=== PATIENT | female | born 1935 | race Caucasian/White ===

== ENCOUNTER 2024-06-26 12:13 | Inpatient (IN) | payer MEDICARE ==
--- NOTE | 2024-06-26 12:52 | ED ---
General Adult HPI - General Chief complaint: Arrhythmia/Palpitations Stated complaint: elevted heart rate Time Seen by Provider: 06/26/24 12:14 Source: patient, family, EMS, RN notes reviewed Mode of arrival: EMS Limitations: altered mental status - History of Present Illness Initial comments: Patient is an 88-year-old female presenting to the emergency department with concerns for increased heart rate. Daughter has noticed this since last night. Heart rate has been as high as 140s. Patient has been more drowsy today. Patient does have history of pulmonary fibrosis and recently was placed on oxygen just 2 weeks ago. Atrial flutter is also new and patient was started on anticoagulation 2 weeks ago. Patient is very drowsy and offers little history. Majority of history is from daughter - Related Data Home Medications Medication Instructions Recorded Confirmed predniSONE 5 mg PO MOWEFR 04/07/18 06/26/24 Apixaban [Eliquis] 5 mg PO BID-W/MEALS 06/26/24 06/26/24 Calcium Carbonate [Calcium] 600 mg PO DAILY 06/26/24 06/26/24 Multivit-Min/Iron/Folic/Lutein 1 tab PO DAILY 06/26/24 06/26/24 [Centrum Silver Women Tablet] Omeprazole Magnesium [PriLOSEC OTC] 20 mg PO DAILY 06/26/24 06/26/24 Triamterene/Hydrochlorothiazid 1 tab PO DAILY 06/26/24 06/26/24 [Triamterene-Hctz 37.5-25 mg Tb] dilTIAZem HCL 30 mg PO TID 06/26/24 06/26/24 Allergies Allergy/AdvReac Type Severity Reaction Status Date / Time No Known Allergies Allergy Verified 06/26/24 12:34 Review of Systems ROS Statement: Those systems with pertinent positive or pertinent negative responses have been documented in the HPI. ROS Other: All systems not noted in ROS Statement are negative. Constitutional: Denies: fever Eyes: Denies: eye pain Respiratory: Denies: dyspnea Cardiovascular: Denies: chest pain Endocrine: Reports: fatigue Past Medical History Past Medical History: Atrial Flutter, Hyperlipidemia Additional Past Medical History / Comment(s): pulmonary fibrosis History of Any Multi-Drug Resistant Organisms: None Reported Past Surgical History: Heart Catheterization Additional Past Surgical History / Comment(s): approx 10 years ago. Past Anesthesia/Blood Transfusion Reactions: No Reported Reaction Past Psychological History: No Psychological Hx Reported Smoking Status: Never smoker Past Alcohol Use History: None Reported Past Drug Use History: None Reported - Past Family History Father Family Medical History: Myocardial Infarction ([place]) General Exam Limitations: altered mental status General appearance: other (Patient very drowsy but arousable to voice and then drifts off to sleep.) Head exam: Present: atraumatic Eye exam: Present: normal appearance, PERRL ENT exam: Present: normal oropharynx Neck exam: Present: normal inspection. Absent: tenderness, meningismus Respiratory exam: Present: normal lung sounds bilaterally Cardiovascular Exam: Present: tachycardia, irregular rhythm GI/Abdominal exam: Present: soft. Absent: tenderness Extremities exam: Present: normal inspection. Absent: pedal edema, calf tenderness Neurological exam: Present: alert, oriented X3, CN II-XII intact Expanded Neurological exam: Present: protecting the airway, other (Limited exam. Drowsy. Patient follows commands when repetitively told to do so) Patient oriented to: Present: person, place, time Motor strength exam: RUE: 5, LUE: 5, RLE: 4, LLE: 4 Eye Response: (3) open to voice Motor Response: (6) obeys commands Verbal Response: (5) oriented Psychiatric exam: Present: flat affect Skin exam: Present: normal color Course Vital Signs 06/26/24 06/26/24 06/26/24 12:16 12:23 12:31 Temperature 97.0 F L Pulse Rate 62 101 H Pulse Rate [ 82 Grant Specialist ] Respiratory 22 20 Rate Blood Pressure 87/66 115/90 O2 Sat by Pulse 92 L 93 L Oximetry Fraction of Inspired Oxygen (FIO2) 06/26/24 06/26/24 06/26/24 12:55 13:39 13:53 Temperature Pulse Rate 112 H 141 H Pulse Rate [ Grant Specialist ] Respiratory 35 H 24 Rate Blood Pressure 98/72 98/82 O2 Sat by Pulse 89 L 97 Oximetry Fraction of 50 Inspired Oxygen (FIO2) EKG Findings - EKG Results: EKG: interpreted by ERMD (Nonspecific T waves), normal axis, normal QRS EKG shows: tachycardia (Atrial flutter) Procedures - ABG Interpretation Ph: 7.26 PCO2: 85 PO2: 40 Interpretation: respiratory acidosis Medical Decision Making - Medical Decision Making Was pt. sent in by a medical professional or institution (Dr., PA, BLACKJACK SUPERVISOR, urgent care, hospital, or care home...) When possible be specific @ -No Did you speak to anyone other than the patient for history (EMS, parent, family, police, friend...)? What history was obtained from this source @ -Daughter is present and provides majority of history as patient is drowsy Did you review nursing and triage notes (agree or disagree)? Why? @ -I reviewed and agree with nursing and triage notes Were old charts reviewed (outside hosp., previous admission, EMS record, old EKG, old radiological studies, urgent care reports/EKG's, care home records)? Report findings @ -No old charts were reviewed Differential Diagnosis (chest pain, altered mental status, abdominal pain women, abdominal pain men, vaginal bleeding, weakness, fever, dyspnea, syncope, headache, dizziness, GI bleed, back pain, seizure, CVA, palpatations, mental health, musculoskeletal)? @ -Differential Dyspnea: Coronary syndrome, arrhythmia, tamponade, asthma, COPD, pulmonary embolism, pneumonia, pneumothorax, pulmonary effusion, anaphylaxis, diabetic ketoacidosis, flailed chest, pulmonary contusion, diaphragmatic rupture, anemia, neuromuscular, this is not meant to be an all-inclusive list. EKG interpreted by me (3pts min.). @ -As above X-rays interpreted by me (1pt min.). @ -Chest x-ray shows increased interstitial changes CT interpreted by me (1pt min.). @ -None done U/S interpreted by me (1pt. min.). @ -None done What testing was considered but not performed or refused? (CT, X-rays, U/S, labs)? Why? @ -None What meds were considered but not given or refused? Why? @ -Consider Cardizem drip however heart rate has improved Did you discuss the management of the patient with other professionals (professionals i.e. TERESA Ruiz, BLACKJACK SUPERVISOR, lab, RT, psych nurse, social secretary, white sugar pan tank operator, teacher, sheriff's officer, child welfare caseworker)? Give summary @ -Case was discussed with Dr. Vergara who will admit covering Dr. Fernandez. Case also discussed with Dr. Ortega who will admit to ICU and consult. Was smoking cessation discussed for >3mins.? @ -No Was critical care preformed (if so, how long)? @ -34 minutes critical care time Were there social determinants of health that impacted care today? How? (Homelessness, low income, unemployed, alcoholism, drug addiction, transportation, low edu. Level, literacy, decrease access to med. care, long term, rehab)? @ -No Was there de-escalation of care discussed even if they declined (Discuss DNR or withdrawal of care, Hospice)? DNR status @ -Discussion had with family regarding patient CODE STATUS and they are unclear at this time. Therefore patient will remain full code. They will discuss this with further family member What co-morbidities impacted this encounter? (DM, HTN, Smoking, COPD, CAD, Cancer, CVA, ARF, Chemo, Hep., AIDS, mental health diagnosis, sleep apnea, morbid obesity)? @ -History of pulmonary fibrosis Was patient admitted / discharged? Hospital course, mention meds given and route, prescriptions, significant lab abnormalities, going to OR and other pertinent info. @ -Patient presents with tachycardia and increased drowsiness. Patient is hypoxic requiring BiPAP. Patient will be admitted to intensive care unit with pulmonary/critical care consult. Patient and family updated. Admission orders written Undiagnosed new problem with uncertain prognosis? @ -No Drug Therapy requiring intensive monitoring for toxicity (Heparin, Nitro, Insulin, Cardizem)? @ -No Were any procedures done? @ -No Diagnosis/symptom? @ -Respiratory failure, atrial flutter Acute, or Chronic, or Acute on Chronic? @ -Acute, acute on chronic Uncomplicated (without systemic symptoms) or Complicated (systemic symptoms)? @ -Complicated with tachycardia that at this point has resolved Side effects of treatment? @ -No Exacerbation, Progression, or Severe Exacerbation? @ -Severe exacerbation Poses a threat to life or bodily function? How? (Chest pain, [place], [place], pneumonia, PE, COPD, DKA, ARF, appy, cholecystitis, CVA, Diverticulitis, Homicidal, Suicidal, threat to staff... and all critical care pts) @ -Threat to pulmonary and cardiac function - Lab Data Result diagrams: 06/26/24 12:57 06/26/24 12:57 Lab Results 06/26/24 06/26/24 06/26/24 Range/Units 12:57 12:57 12:57 WBC 10.1 (3.8-10.6) k/uL RBC 4.47 (3.80-5.40) m/uL Hgb 14.2 (11.4-16.0) gm/dL Hct 46.3 H (34.0-46.0) % MCV 103.5 H (80.0-100.0) fL MCH 31.8 (25.0-35.0) pg MCHC 30.8 L (31.0-37.0) g/dL RDW 15.0 (11.5-15.5) % Plt Count 255 (150-450) k/uL MPV 10.3 Neutrophils % 91 % Lymphocytes % 4 % Monocytes % 4 % Eosinophils % 1 % Basophils % 0 % Neutrophils # 9.2 H (1.3-7.7) k/uL Lymphocytes # 0.4 L (1.0-4.8) k/uL Monocytes # 0.4 (0-1.0) k/uL Eosinophils # 0.1 (0-0.7) k/uL Basophils # 0.0 (0-0.2) k/uL Hypochromasia Marked Macrocytosis Moderate PT 12.6 H (10.0-12.5) sec INR 1.2 H (<1.2) APTT 22.2 (22.0-30.0) sec Sample Site ABG pH (7.35-7.45) ABG pCO2 (35-45) mmHg ABG pO2 (83-108) mmHg ABG HCO3 (21-25) mmol/L ABG Total CO2 (19-24) mmol/L ABG O2 Saturation (94-97) % ABG Base Excess mmol/L Jordy Test Hemoglobin (11.4-16.0) gm/dL FiO2 % Sodium 138 (137-145) mmol/L Potassium 5.0 (3.5-5.1) mmol/L Chloride 95 L (98-107) mmol/L Carbon Dioxide 38 H (22-30) mmol/L Anion Gap 5 mmol/L BUN 69 H (7-17) mg/dL Creatinine 1.30 H (0.52-1.04) mg/dL Est GFR (CKD-EPI)AfAm 43 (>60 ml/min/1.73 sqM) Est GFR (CKD-EPI)NonAf 37 (>60 ml/min/1.73 sqM) Glucose 144 H (74-99) mg/dL Calcium 10.1 (8.4-10.2) mg/dL Magnesium 2.1 (1.6-2.3) mg/dL Total Bilirubin 0.7 (0.2-1.3) mg/dL AST 24 (14-36) U/L ALT 22 (4-34) U/L Alkaline Phosphatase 130 H (38-126) U/L Troponin I (0.000-0.034) ng/mL Total Protein 6.7 (6.3-8.2) g/dL Albumin 3.5 (3.5-5.0) g/dL TSH 1.410 (0.465-4.680) mIU/L Free T4 1.00 (0.78-2.19) ng/dL 06/26/24 06/26/24 Range/Units 12:57 13:06 WBC (3.8-10.6) k/uL RBC (3.80-5.40) m/uL Hgb (11.4-16.0) gm/dL Hct (34.0-46.0) % MCV (80.0-100.0) fL MCH (25.0-35.0) pg MCHC (31.0-37.0) g/dL RDW (11.5-15.5) % Plt Count (150-450) k/uL MPV Neutrophils % % Lymphocytes % % Monocytes % % Eosinophils % % Basophils % % Neutrophils # (1.3-7.7) k/uL Lymphocytes # (1.0-4.8) k/uL Monocytes # (0-1.0) k/uL Eosinophils # (0-0.7) k/uL Basophils # (0-0.2) k/uL Hypochromasia Macrocytosis PT (10.0-12.5) sec INR (<1.2) APTT (22.0-30.0) sec Sample Site rrad ABG pH 7.24 L (7.35-7.45) ABG pCO2 86 H* (35-45) mmHg ABG pO2 41 L* (83-108) mmHg ABG HCO3 36 H (21-25) mmol/L ABG Total CO2 39 H (19-24) mmol/L ABG O2 Saturation 75.8 L (94-97) % ABG Base Excess 5.6 mmol/L Jordy Test Yes Hemoglobin 13.9 (11.4-16.0) gm/dL FiO2 40 % Sodium (137-145) mmol/L Potassium (3.5-5.1) mmol/L Chloride (98-107) mmol/L Carbon Dioxide (22-30) mmol/L Anion Gap mmol/L BUN (7-17) mg/dL Creatinine (0.52-1.04) mg/dL Est GFR (CKD-EPI)AfAm (>60 ml/min/1.73 sqM) Est GFR (CKD-EPI)NonAf (>60 ml/min/1.73 sqM) Glucose (74-99) mg/dL Calcium (8.4-10.2) mg/dL Magnesium (1.6-2.3) mg/dL Total Bilirubin (0.2-1.3) mg/dL AST (14-36) U/L ALT (4-34) U/L Alkaline Phosphatase (38-126) U/L Troponin I 0.020 (0.000-0.034) ng/mL Total Protein (6.3-8.2) g/dL Albumin (3.5-5.0) g/dL TSH (0.465-4.680) mIU/L Free T4 (0.78-2.19) ng/dL Disposition Clinical Impression: Atrial flutter, Tachycardia, Respiratory failure Disposition: ADMITTED IP TO THIS HOSP Condition: Critical Is patient prescribed a controlled substance at d/c from ED?: No Referrals: Ollie Fernandez MD [Primary Care Provider] - 1-2 days Time of Disposition: 13:56
[2024-06-26 13:10] LABS: Basophils % (A) 0 %; Eosinophils # (A) 0.1 k/uL (0-0.7); Eosinophils % (A) 1 %; HCT 46.3 % (34.0-46.0); HGB 14.2 gm/dL (11.4-16.0); Hypochromasia Marked; Lymphocytes # (A) 0.4 k/uL (1.0-4.8); Lymphocytes % (A) 4 %; MCH 31.8 pg (25.0-35.0); MCHC 30.8 g/dL (31.0-37.0); MCV 103.5 fL (80.0-100.0); Macrocytosis Moderate; Mean Platelet Volume 10.3; Monocytes # (A) 0.4 k/uL (0-1.0); Monocytes % (A) 4 %; Neutrophils # (A) 9.2 k/uL (1.3-7.7); Neutrophils % (A) 91 %; Platelet Count 255 k/uL (150-450); RBC 4.47 m/uL (3.80-5.40); WBC 10.1 k/uL (3.8-10.6)
[2024-06-26 13:10] LABS: ABG Base Excess 5.6 mmol/L; ABG HCO3 36 mmol/L (21-25); ABG Oxygen Saturation 75.8 % (94-97); ABG PH 7.24 (7.35-7.45); ABG TCO2 39 mmol/L (19-24); Allen Test Performed? Yes
[2024-06-26 13:15] LABS: ALT 22 U/L (4-34); AST 24 U/L (14-36); African American GFR (CKD) 43 (>60 ml/min/1.73 sqM); Albumin 3.5 g/dL (3.5-5.0); Alkaline Phosphatase 130 U/L (38-126); Anion Gap 5 mmol/L; Blood Urea Nitrogen 69 mg/dL (7-17); Calcium 10.1 mg/dL (8.4-10.2); Carbon Dioxide 38 mmol/L (22-30); Chloride 95 mmol/L (98-107); Glucose 144 mg/dL (74-99); Magnesium 2.1 mg/dL (1.6-2.3); Non-African American GFR(CKD) 37 (>60 ml/min/1.73 sqM); Sodium 138 mmol/L (137-145); Total Bilirubin 0.7 mg/dL (0.2-1.3); Total Protein 6.7 g/dL (6.3-8.2)
[2024-06-26 13:16] LABS: ABG PCO2 86 mmHg (35-45); ABG PO2 41 mmHg (83-108)
[2024-06-26 13:19] LABS: INR 1.2 (<1.2); Partial Thromboplastin Time 22.2 sec (22.0-30.0); Prothrombin Time 12.6 sec (10.0-12.5)
--- NOTE | 2024-06-26 13:33 | XR ---
EXAMINATION TYPE: XR chest 1V portable DATE OF EXAM: 06/26/2024 1:23 PM COMPARISON: Chest radiographs from 04/08/2018, CT abdomen and pelvis 04/06/2018 TECHNIQUE: XR chest 1V portable Portable AP radiograph of the chest. CLINICAL INDICATION:Female, 88 years old with history of dysrhythmia; FINDINGS: Lungs/Pleura: Diffuse multifocal airspace opacities. Blunting of both costophrenic angles. No evidenc e of pneumothorax. Hyperinflation. Biapical pleural thickening. Pulmonary vascularity: Unremarkable. Heart/mediastinum: Cardiomediastinal silhouette is enlarged and stable. Musculoskeletal: No acute osseous pathology. IMPRESSION: 1. Multifocal airspace opacities concerning for pneumonia. 2. Small bilateral pleural effusions. 3. COPD changes. 4. Large hiatal hernia is better appreciated on prior CT. [facility], , 06/26/2024 1:31 PM
[2024-06-26] MEDS ORDERED: Potassium Replacement Protocol 1 EACH MISC MISCELLANE PRN (14:05)
[2024-06-26] MEDS ORDERED: ACETAMINOPHEN TAB 325 MG TAB PO PRN (14:05)
[2024-06-26] MEDS ORDERED: NALOXONE 0.4 MG/ML 1 ML VIAL IV PRN (14:05)
[2024-06-26] MEDS ORDERED: Magnesium Replacement Protocol 1 EACH MISC MISCELLANE PRN (14:05)
[2024-06-26] MEDS ORDERED: IPRATROPIUM-ALBUTEROL 3 ML NEB INHALATION PRN (14:05)
[2024-06-26] MEDS ORDERED: ACETAMINOPHEN SUPPOSITORY 650 MG SUPP RECTAL PRN (14:05)
[2024-06-26] MEDS: LACTATED RINGERS 1,000 ML IV STA (14:05)
[2024-06-26] MEDS ORDERED: Phosphorus Replacement Protoco 1 EACH MISC MISCELLANE PRN (14:05)
[2024-06-26 14:39] LABS: Influenza A Not Detected (Not Detectd); Influenza B Not Detected (Not Detectd); RSV Not Detected (Not Detectd)
[2024-06-26] MEDS: methylPREDNISolone SOD SUCCI 125 MG/2 ML VIAL IV STA (14:53)
[2024-06-26] MEDS ORDERED: HEPARIN SODIUM 1,000 UN/ML (10ML VL) IV PRN (15:35)
[2024-06-26 15:40] LABS: ABG Base Excess 5.3 mmol/L; ABG HCO3 35 mmol/L (21-25); ABG Oxygen Saturation 99.5 % (94-97); ABG PH 7.28 (7.35-7.45); ABG PO2 135 mmHg (83-108); ABG TCO2 37 mmol/L (19-24); Allen Test Performed? Yes
[2024-06-26 15:45] LABS: ABG PCO2 74 mmHg (35-45)
--- NOTE | 2024-06-26 16:01 | P.CNPUL ---
History of Present Illness Consult date: 06/26/24 Reason for consult: dyspnea History of present illness: 88-year-old female patient, presented to us from [facility] in acute hypoxic and hypercapnic respiratory failure. Patient is known to have pulmonary fibrosis followed up through our office by Dr. Drake. The patient has severe restrictive lung disease with an FVC of 61% of predicted and a diffusion capacity of 34% of predicted. She also has hypertension hyperlipidemia and pre vious history of GI bleed. Recently, she has been experiencing worsening shortness of breath. She ended up being seen at [facility] where she was given antibiotics and discharged. She was noted to be in atrial flutter. She was seen by Dr. Londono from cardiology. She is already on anticoagulation and the patient was being considered for cardioversion. However, the procedure was not done. The patient became more short of breath over the past 24 hours which ended up coming into the hospital. No fever. No chills. No sputum production. Some increased lower extremity edema. Initial blood gas showed a pH of 7.24 with a pCO2 of 86 and pO2 of 41. The patient was placed on a BiPAP at a pressure of 14 over 5 cm of water with an FiO2 of 40%. Subsequent blood gas showed a pH of 7.28 with a pCO2 of 74 and pO2 of 135. Remains in atrial flutter with a variable block and a heart rate between 110 and 120. Blood pressure is soft. She has an acute kidney injury with a creatinine of 1.3 and a pCO2 of 69. Her level of consciousness quite diminished. White cell count of 10.1. Hem oglobin 14.2. The viral screen is negative. proBNP level is 5430. Family is at the bedside. No previous history of DVT or pulmonary embolism. She was already taking anticoagulation with Eliquis. Review of Systems ROS unobtainable: due to mental status Past Medical History Past Medical History: Atrial Flutter, Hyperlipidemia Additional Past Medical History / Comment(s): pulmonary fibrosis History of Any Multi-Drug Resistant Organisms: None Reported Past Surgical History: Heart Catheterization Additional Past Surgical History / Comment(s): approx 10 years ago. Past Anesthesia/Blood Transfusion Reactions: No Reported Reaction Past Psychological History: No Psychological Hx Reported Smoking Status: Never smoker Past Alcohol Use History: None Reported Past Drug Use History: None Reported - Past Family History Father Family Medical History: Myocardial Infarction ([place]) Medications and Allergies Home Medications Medication Instructions Recorded Confirmed Type predniSONE 5 mg PO MOWEFR 04/07/18 06/26/24 History Apixaban [Eliquis] 5 mg PO BID-W/MEALS 06/26/24 06/26/24 History Calcium Carbonate [Calcium] 600 mg PO DAILY 06/26/24 06/26/24 History Multivit-Min/Iron/Folic/Lutein 1 tab PO DAILY 06/26/24 06/26/24 History [Centrum Silver Women Tablet] Omeprazole Magnesium [PriLOSEC OTC] 20 mg PO DAILY 06/26/24 06/26/24 History Triamterene/Hydrochlorothiazid 1 tab PO DAILY 06/26/24 06/26/24 History [Triamterene-Hctz 37.5-25 mg Tb] dilTIAZem HCL 30 mg PO TID 06/26/24 06/26/24 History Allergies Allergy/AdvReac Type Severity Reaction Status Date / Time No Known Allergies Allergy Verified 06/26/24 12:34 Physical Exam Vitals: Vital Signs Temp Pulse Pulse Resp BP Pulse Ox FiO2 06/26/24 15:32 98 24 94/52 99 06/26/24 15:25 124 H 24 112/83 98 06/26/24 15:23 40 06/26/24 15:06 98 24 92/67 98 06/26/24 14:31 107 H 26 H 90/54 97 06/26/24 14:01 40 06/26/24 14:00 91 24 94/43 96 06/26/24 13:53 50 06/26/24 13:39 141 H 24 98/82 97 06/26/24 13:25 50 06/26/24 12:55 112 H 35 H 98/72 89 L 06/26/24 12:31 101 H 20 115/90 93 L 06/26/24 12:23 82 06/26/24 12:16 97.0 F L 62 22 87/66 92 L Intake and Output 06/26/24 06/26/24 06/26/24 06:59 14:59 22:59 Other: Weight 68.039 kg Diminished level of consciousness, tachypneic with respiratory rate between 25 and 30 on a BiPAP at a pressure of 14 over 5 cm of water with an FiO2 of 40%. Grimaces only to painful stimulation. Not following commands. Head exam is unremarkable. No scleral icterus or corneal arcus noted. Neck is without jugular venous distension, thyromegaly, or carotid bruits. Carotid upstrokes are brisk bilaterally. Lung diminished bilaterally along with) lung base bilaterally. Cardiac exam reveals the PMI to be normally sized and situated. Irregular consistent with atrial flutter with a variable block. First and second heart sounds normal. No murmurs, rubs or gallops. Abdominal exam reveals normal bowel sounds, no masses, no organomegaly and no aortic enlargement. Extremities are nonedematous and both femoral and pedal pulses are normal. Examination of the skin revealed no evidence of significant rashes, suspicious appearing nevi or other concerning lesions. Neurologically, the patient has diminished level of consciousness. Grimaces only to painful stimulation. Very much obtunded. Results - Laboratory Findings CBC and BMP: 06/26/24 12:57 06/26/24 12:57 ABG ABG pH 7.28 (7.35-7.45) L 06/26/24 15:37 ABG pCO2 74 mmHg (35-45) H* 06/26/24 15:37 ABG pO2 135 mmHg (83-108) H 06/26/24 15:37 ABG O2 Saturation 99.5 % (94-97) H 06/26/24 15:37 PT/INR, D-dimer PT 12.6 sec (10.0-12.5) H 06/26/24 12:57 INR 1.2 (<1.2) H 06/26/24 12:57 Abnormal lab findings: Abnormal Labs 06/26/24 06/26/24 06/26/24 12:57 12:57 12:57 Hct 46.3 H MCV 103.5 H MCHC 30.8 L Neutrophils # 9.2 H Lymphocytes # 0.4 L PT 12.6 H INR 1.2 H ABG pH ABG pCO2 ABG pO2 ABG HCO3 ABG Total CO2 ABG O2 Saturation Chloride 95 L Carbon Dioxide 38 H BUN 69 H Creatinine 1.30 H Glucose 144 H Alkaline Phosphatase 130 H 06/26/24 06/26/24 13:06 15:37 Hct MCV MCHC Neutrophils # Lymphocytes # PT INR ABG pH 7.24 L 7.28 L ABG pCO2 86 H* 74 H* ABG pO2 41 L* 135 H ABG HCO3 36 H 35 H ABG Total CO2 39 H 37 H ABG O2 Saturation 75.8 L 99.5 H Chloride Carbon Dioxide BUN Creatinine Glucose Alkaline Phosphatase - Diagnostic Findings Chest x-ray: image reviewed Assessment and Plan Plan: Acute on top of chronic hypoxic and hypercapnic respiratory failure with significant respiratory acidosis and hypoxemia at time of admission, currently on a BiPAP pressure of 14/5 with FiO2 of 40%. Generated tidal volumes in the order of 200 cc and the patient continues to be tachypneic. Chest x-ray shows diffuse interstitial pulmonary infiltrates consistent with pulmonary fibrosis. Superimposed CHF cannot be completely excluded. New onset atrial flutter with secondary tachycardia and the patient is a variable block, maintained on anticoagulation with Eliquis on outpatient basis, proBNP level is elevated. Rule out component of CHF in addition Acute on chronic shortness of breath secondary to above Diminished level of consciousness, likely secondary to CO2 narcosis Acute kidney injury Chronic pulmonary fibrosis with restrictive lung disease Hypertension Hyperlipidemia Previous history of GI bleed Plan Continue BiPAP at the same setting of 14 over 5 cm of water Titrate FiO2 to maintain saturation above 90%. Insert Joyner catheter Give Lasix 40 mg IV push x 1 Will continue diuresis if the patient shows adequate response to Lasix Monitor renal function Stop Eliquis and put the patient on IV heparin Start the patient on amiodarone per protocol for rate control in regards to atrial flutter Possible cardioversion if the patient shows hemodynamic instability IV Rocephin, empiric antibiotic coverage IV Solu-Medrol Condition is obviously critical. Discussed advanced directives with the family. Initially, they were not enthusiastic and intubation mechanical ventilation. However, final decision has not been made by the family. Will monitor clinical course. Will admit the patient to ICU. Will make further recommendations based on her progress. Prognosis essentially poor based above-mentioned comorbidities. Will follow. Evaluation was done more than 30 minutes.
--- NOTE | 2024-06-26 16:01 | P.PCN ---
Date of Procedure: 06/26/24 Operative Findings: Indication: Hemodynamic monitoring/Intravenous access. A time-out was completed verifying correct patient, procedure, site, positioning, and implant(s) or special equipment if applicable. The patient was placed in a dependent position appropriate for triple lumen catheter placement based on the vein to be cannulated. The patient's right femoral area was prepped and draped in sterile fashion. 1% Lidocaine was used to anesthetize the surrounding skin area. A triple lumen 9F Cordis catheter was introduced into the femoral vein using Seldinger technique. The catheter was threaded smoothly over the guide wire and appropriate blood return was obtained. Each lumen of the catheter was evacuated of air and flushed with sterile saline. The catheter was then sutured in place to the skin and a sterile dressing applied. Perfusion to the extremity distal to the point of catheter insertion was checked and found to be adequate.
[2024-06-26] MEDS: HEPARIN SOD,PORK IN 0.45% NACL 25,000 UNIT in 0.45% NACL 1 250ML.BAG IV SCH (16:02)
[2024-06-26] MEDS: DEXTROSE 5% IN WATER 100 ML with AMIODARONE 150 MG IV ONE (16:06)
[2024-06-26] MEDS: FUROSEMIDE 10 MG/ML 4 ML VIAL IV STA (16:08)
[2024-06-26] MEDS: DILTIAZEM ORAL 30 MG TAB PO SCH (16:11)
[2024-06-26] MEDS: IPRATROPIUM-ALBUTEROL 3 ML NEB INHALATION SCH (16:33)
[2024-06-26] MEDS: AMIODARONE 360 MG in DEXTROSE 5% IN WATER 200 ML IV ONE (16:39)
[2024-06-26 17:03] LABS: Glucose,Whole Blood 118 mg/dL (70-110)
[2024-06-26] MEDS ORDERED: APIXABAN 5 MG TAB PO SCH (17:30)
[2024-06-26] MEDS: methylPREDNISolone SOD SUCCI 125 MG/2 ML VIAL IV SCH (17:45)
[2024-06-26 18:30] LABS: ABG Base Excess 3.8 mmol/L; ABG HCO3 35 mmol/L (21-25); ABG Oxygen Saturation 98.5 % (94-97); ABG PH 7.21 (7.35-7.45); ABG PO2 107 mmHg (83-108); ABG TCO2 38 mmol/L (19-24); Allen Test Performed? Yes
[2024-06-26 18:55] LABS: ABG PCO2 88 mmHg (35-45)
[2024-06-26 20:35] LABS: ABG Base Excess 3.2 mmol/L; ABG HCO3 34 mmol/L (21-25); ABG Oxygen Saturation 98.3 % (94-97); ABG PO2 102 mmHg (83-108); ABG TCO2 37 mmol/L (19-24); Allen Test Performed? Yes
[2024-06-26 20:36] LABS: ABG PCO2 87 mmHg (35-45)
[2024-06-26 21:58] LABS: ALT 22 U/L (4-34); AST 25 U/L (14-36); African American GFR (CKD) 34 (>60 ml/min/1.73 sqM); Albumin 3.4 g/dL (3.5-5.0); Alkaline Phosphatase 132 U/L (38-126); Anion Gap 12 mmol/L; Blood Urea Nitrogen 72 mg/dL (7-17); Calcium 9.7 mg/dL (8.4-10.2); Carbon Dioxide 35 mmol/L (22-30); Chloride 93 mmol/L (98-107); Glucose 180 mg/dL (74-99); Non-African American GFR(CKD) 30 (>60 ml/min/1.73 sqM); Potassium 5.3 mmol/L (3.5-5.1); Sodium 140 mmol/L (137-145); Total Bilirubin 0.6 mg/dL (0.2-1.3); Total Protein 6.6 g/dL (6.3-8.2)
[2024-06-26] MEDS: AMIODARONE 450 MG in DEXTROSE 5% IN WATER 250 ML IV SCH (22:14)
[2024-06-26] MEDS: SODIUM CHLORIDE 0.9% 1,000 ML IV SCH (22:44)
[2024-06-26 23:12] LABS: Glucose,Whole Blood 167 mg/dL (70-110)
[2024-06-27 03:13] LABS: Basophils % (A) 0 %; Eosinophils % (A) 0 %; HCT 45.7 % (34.0-46.0); HGB 13.4 gm/dL (11.4-16.0); Hypochromasia Marked; Lymphocytes # (A) 0.3 k/uL (1.0-4.8); Lymphocytes % (A) 4 %; MCH 31.3 pg (25.0-35.0); MCHC 29.3 g/dL (31.0-37.0); MCV 106.7 fL (80.0-100.0); Macrocytosis Moderate; Mean Platelet Volume 10.3; Monocytes # (A) 0.2 k/uL (0-1.0); Monocytes % (A) 3 %; Neutrophils # (A) 7.6 k/uL (1.3-7.7); Neutrophils % (A) 93 %; Platelet Count 235 k/uL (150-450); RBC 4.28 m/uL (3.80-5.40); RDW 14.3 % (11.5-15.5); WBC 8.2 k/uL (3.8-10.6)
[2024-06-27 03:31] LABS: ALT 22 U/L (4-34); AST 24 U/L (14-36); African American GFR (CKD) 33 (>60 ml/min/1.73 sqM); Albumin 3.3 g/dL (3.5-5.0); Alkaline Phosphatase 123 U/L (38-126); Anion Gap 8 mmol/L; Blood Urea Nitrogen 74 mg/dL (7-17); Calcium 9.5 mg/dL (8.4-10.2); Carbon Dioxide 33 mmol/L (22-30); Chloride 96 mmol/L (98-107); Glucose 171 mg/dL (74-99); Non-African American GFR(CKD) 29 (>60 ml/min/1.73 sqM); Potassium 5.3 mmol/L (3.5-5.1); Sodium 137 mmol/L (137-145); Total Bilirubin 0.6 mg/dL (0.2-1.3); Total Protein 6.2 g/dL (6.3-8.2)
[2024-06-27 03:58] LABS: INR 1.3 (<1.2); Prothrombin Time 13.4 sec (10.0-12.5)
--- NOTE | 2024-06-27 07:35 | XR ---
EXAMINATION TYPE: XR chest 1V portable DATE OF EXAM: 06/27/2024 5:44 AM COMPARISON: Chest radiographs from 06/26/2024 TECHNIQUE: XR chest 1V portable Portable AP radiograph of the chest. CLINICAL INDICATION:Female, 88 years old with history of pulmonary fibrosis; FINDINGS: Lungs/Pleura: Similar diffuse multifocal airspace opacities. Blunting of both costophrenic angles. No evidence of pneumothorax. Hyperinflation. Biapical pleural thickening. Pulmonary vascularity: Unremarkable. Heart/mediastinum: Cardiomediastinal silhouette is enlarged and stable. Atherosclerotic calcificatio ns are seen in the aorta. Known large hiatal hernia is better appreciated on prior CT. Musculoskeletal: No acute osseous pathology. IMPRESSION: 1. Similar multifocal airspace opacities concerning for pneumonia. 2. Small bilateral pleural effusions. 3. COPD and pulmonary fibrotic changes. [facility], , 06/27/2024 7:33 AM
[2024-06-27] MEDS: PANTOPRAZOLE 40 MG/10 ML VIAL IV SCH (07:37)
[2024-06-27 08:12] VITALS: TEMP 98.2
--- NOTE | 2024-06-27 08:36 | P.CRDCN ---
History of Present Illness Consult date: 06/27/24 Consult reason: atrial flutter History of present illness: This is Kj Kimbrough NP, I'm dictating on behalf of Dr. Garcia's H&P and A&P The patient was interviewed and examined. HPI: Patient is an 88-year-old female with a past medical history of hyperlipidemia, pulmonary fibrosis, atrial fibrillation, and recent hospitalization for pneumonia who came into the hospital due to concerns for increased heart rate. Patient's daughter had noted that the patient's heart rate was as high as 140 over the night. Patient had been more drowsy. Patient just recently started supplemental oxygen a few weeks ago. Patient was also noted to be in atrial flutter in the emergency department. Patient remained obtunded in the emergency department the majority of the HPI was taken from the daughter. Patient was started on amiodarone and IV diltiazem, ABGs showed high CO2 so she was started on BiPAP. This morning the patient remains obtunded. She is unable to take oral medications so her Eliquis was also stopped and she was started on a heparin drip. Patient continues on amiodarone and diltiazem, with a heart rate remaining in the 130s which continues to demonstrate atrial flutter. ROS: Unable to obtain secondary to patient remaining obtunded. EXAMINATION: GENERAL: Well-appearing, well-nourished and in no acute distress. NECK: Supple without JVD or thyromegaly. LUNGS: Breath sounds clear to auscultation bilaterally. Respiration equal and unlabored. No wheezes, rales or rhonchi. HEART: Tachycardia without murmurs, rubs or gallops. S1 and S2 heard. EXTREMITIES: Normal range of motion, no edema. No clubbing or cyanosis. Peripheral pulses intact and strong. REVIEW OF LABS, ECG & MEDICAL DATA: LABS: White count 8.2, hemoglobin 13.4, platelets 235, sodium 137, potassium 5.3, BUN 74, creatinine 1.6, magnesium 2.1, troponin 0.020, proBNP 5430, TSH 1.41, free T4 1 EKG: Atrial flutter IMAGING: Chest x-ray dated 06/26/2024 demonstrates multifocal airspace opacities concerning for pneumonia, small bilateral pleural effusions, COPD changes, large hiatal hernia is better appreciated on prior CT. Chest x-ray dated 06/27/2024 demonstrates similar multifocal airspace opacities concerning for pneumonia, small bilateral pleural effusions, COPD and pulmonary fibrotic changes. VITALS: Temp 98.2, pulse 131, respirations 14, blood pressure 88/58, O2 saturation 93 L on BiPAP IMPRESSION: 1. Multifocal pneumonia with underlying pulmonary fibrosis 2. Atrial flutter with rapid rate 3. History of atrial fibrillation 4. CO2 narcosis PLAN: Discontinue IV amiodarone, likely not going to convert and high risk secondary to pulmonary fibrosis. Continue IV diltiazem, attempt to control heart rate. Treat underlying condition. Cardioversion will be deferred, as the patient will most likely go back into the rhythm. Patient has a poor prognosis. Further recommendations based on patient's clinical course. Thank you for the consult and allowing us to participate in the care of this patient. Past Medical History Past Medical History: Atrial Flutter, Hyperlipidemia Additional Past Medical History / Comment(s): pulmonary fibrosis History of Any Multi-Drug Resistant Organisms: None Reported Past Surgical History: Heart Catheterization Additional Past Surgical History / Comment(s): approx 10 years ago. Past Anesthesia/Blood Transfusion Reactions: No Reported Reaction Past Psychological History: No Psychological Hx Reported Smoking Status: Never smoker Past Alcohol Use History: None Reported Past Drug Use History: None Reported - Past Family History Father Family Medical History: Myocardial Infarction ([place]) Medications and Allergies Home Medications Medication Instructions Recorded Confirmed Type predniSONE 5 mg PO MOWEFR 04/07/18 06/26/24 History Apixaban [Eliquis] 5 mg PO BID-W/MEALS 06/26/24 06/26/24 History Calcium Carbonate [Calcium] 600 mg PO DAILY 06/26/24 06/26/24 History Multivit-Min/Iron/Folic/Lutein 1 tab PO DAILY 06/26/24 06/26/24 History [Centrum Silver Women Tablet] Omeprazole Magnesium [PriLOSEC OTC] 20 mg PO DAILY 06/26/24 06/26/24 History Triamterene/Hydrochlorothiazid 1 tab PO DAILY 06/26/24 06/26/24 History [Triamterene-Hctz 37.5-25 mg Tb] dilTIAZem HCL 30 mg PO TID 06/26/24 06/26/24 History Allergies Allergy/AdvReac Type Severity Reaction Status Date / Time No Known Allergies Allergy Verified 06/26/24 12:34 Physical Exam Vitals: Vital Signs Temp Pulse Pulse Resp BP Pulse Ox FiO2 06/27/24 08:00 98.2 F 131 H 14 88/58 93 L 40 06/27/24 07:49 133 H 06/27/24 07:36 130 H 06/27/24 07:35 40 06/27/24 07:30 131 H 23 95/61 96 40 06/27/24 07:00 131 H 24 94/64 96 06/27/24 06:30 130 H 21 92/61 96 06/27/24 06:00 130 H 23 91/58 96 06/27/24 05:30 89 10 L 92/62 95 06/27/24 05:00 93 12 92/57 96 06/27/24 04:30 108 H 22 94/56 96 06/27/24 04:11 40 06/27/24 04:00 97.9 F 108 H 53 H 86/50 95 40 06/27/24 03:30 95 19 100/66 95 06/27/24 03:00 94 11 L 93/56 97 06/27/24 02:30 104 H 27 H 96/61 96 06/27/24 02:00 72 27 H 94/63 95 06/27/24 01:30 68 27 H 92/64 96 06/27/24 01:00 108 H 30 H 95/65 95 06/27/24 00:30 117 H 31 H 96/54 97 06/27/24 00:23 40 06/27/24 00:06 100 26 H 96/54 97 06/27/24 00:00 97.7 F 85 34 H 95/60 97 40 06/26/24 23:30 101 H 58 H 105/65 98 06/26/24 23:00 98 28 H 96/63 98 06/26/24 22:30 92 23 94/70 98 06/26/24 22:00 80 24 99/61 98 06/26/24 21:30 98 29 H 97/62 98 06/26/24 21:00 75 24 98/74 99 06/26/24 20:30 98 28 H 100/66 98 06/26/24 20:07 88 06/26/24 20:00 97.6 F 112 H 26 H 92/68 99 40 06/26/24 19:57 90 40 06/26/24 19:30 67 25 H 89/51 98 06/26/24 19:00 90 30 H 95/58 98 40 06/26/24 18:30 90 27 H 90/48 99 40 06/26/24 18:00 90 13 90/48 97 40 06/26/24 17:30 76 21 105/72 98 40 06/26/24 17:02 97.4 F L 88 27 H 98/71 98 40 06/26/24 16:44 78 06/26/24 16:34 68 06/26/24 16:18 40 06/26/24 16:16 85 22 89/56 99 06/26/24 16:00 40 06/26/24 15:32 98 24 94/52 99 06/26/24 15:25 124 H 24 112/83 98 06/26/24 15:23 40 06/26/24 15:06 98 24 92/67 98 06/26/24 14:31 107 H 26 H 90/54 97 06/26/24 14:01 40 06/26/24 14:00 91 24 94/43 96 06/26/24 13:39 141 H 24 98/82 97 06/26/24 13:25 50 06/26/24 12:55 112 H 35 H 98/72 89 L 06/26/24 12:31 101 H 20 115/90 93 L 06/26/24 12:23 82 06/26/24 12:16 97.0 F L 62 22 87/66 92 L Intake and Output 06/26/24 06/27/24 06/27/24 22:59 06:59 14:59 Intake Total 600 75 Output Total 190 40 80 Balance -190 560 -5 Intake: Intake, IV Titration 600 75 Amount Sodium Chloride 0.9% 1, 600 75 000 ml @ 75 mls/hr IV . [id number] [facility] Rx#:[id number] Output: Urine 190 40 80 Other: Voiding Method Indwelling Catheter Indwelling Catheter # Bowel Movements 0 Weight 72.2 kg Results 06/27/24 02:39 06/27/24 02:39 Cardiac Enzymes 06/26/24 06/26/24 06/26/24 Range/Units 12:57 12:57 20:46 AST 24 25 (14-36) U/L Troponin I 0.020 (0.000-0.034) ng/mL 06/27/24 Range/Units 02:39 AST 24 (14-36) U/L Troponin I (0.000-0.034) ng/mL Coagulation 06/26/24 06/26/24 06/27/24 Range/Units 12:57 20:46 02:39 PT 12.6 H 13.4 H (10.0-12.5) sec APTT 22.2 44.9 H (22.0-30.0) sec 06/27/24 Range/Units 07:28 PT (10.0-12.5) sec APTT 62.0 H (22.0-30.0) sec CBC 06/26/24 06/27/24 Range/Units 12:57 02:39 WBC 10.1 8.2 (3.8-10.6) k/uL RBC 4.47 4.28 (3.80-5.40) m/uL Hgb 14.2 13.4 (11.4-16.0) gm/dL Hct 46.3 H 45.7 (34.0-46.0) % Plt Count 255 235 (150-450) k/uL Comprehensive Metabolic Panel 06/26/24 06/26/24 06/27/24 Range/Units 12:57 20:46 02:39 Sodium 138 140 137 (137-145) mmol/L Potassium 5.0 5.3 H 5.3 H (3.5-5.1) mmol/L Chloride 95 L 93 L 96 L (98-107) mmol/L Carbon Dioxide 38 H 35 H 33 H (22-30) mmol/L BUN 69 H 72 H 74 H (7-17) mg/dL Creatinine 1.30 H 1.56 H 1.60 H (0.52-1.04) mg/dL Glucose 144 H 180 H 171 H (74-99) mg/dL Calcium 10.1 9.7 9.5 (8.4-10.2) mg/dL AST 24 25 24 (14-36) U/L ALT 22 22 22 (4-34) U/L Alkaline Phosphatase 130 H 132 H 123 (38-126) U/L Total Protein 6.7 6.6 6.2 L (6.3-8.2) g/dL Albumin 3.5 3.4 L 3.3 L (3.5-5.0) g/dL Current Medications Generic Name Dose Route Start Last Admin Trade Name Freq PRN Reason Stop Dose Admin Acetaminophen 650 mg 06/26/24 14:05 Acetaminophen Tab 325 Mg Tab PO Q4HR PRN Fever and/or Mild Pain Acetaminophen 650 mg 06/26/24 14:05 Acetaminophen Suppository 650 Mg Supp RECTAL Q4HR PRN Fever And/ Or Mild Pain Albuterol/Ipratropium 3 ml 06/26/24 16:00 06/27/24 07:35 Ipratropium-Albuterol 3 Ml Neb INHALATION 3 ml RT-QID ANDREA Administration Albuterol/Ipratropium 3 ml 06/26/24 14:05 Ipratropium-Albuterol 3 Ml Neb INHALATION RT-Q4H PRN Shortness Of Breath Or Wheezing Heparin Sodium (Porcine) 0 unit 06/26/24 15:35 Heparin Sodium 1,000 Un/Ml (10ml Vl) IV PER PROTOCOL PRN Low PTT Protocol Ceftriaxone Sodium 2 gm/ 50 mls @ 100 mls/hr 06/28/24 09:00 Sodium Chloride IVPB Q24HR ANDREA Protocol Heparin Sodium/Sodium Chloride 250 mls @ 8.165 mls/hr 06/26/24 15:45 06/26/24 16:02 25,000 unit/ Sodium Chloride IV 12 units/kg/hr .Q24H ANDREA 8.165 mls/hr Administration Protocol 12 UNITS/KG/HR Sodium Chloride 1,000 mls @ 75 mls/hr 06/26/24 22:45 06/26/24 22:44 Saline 0.9% IV 75 mls/hr .[id number] ANDREA Administration Diltiazem HCl 125 mg/ Sodium 125 mls @ 5 mls/hr 06/27/24 08:30 Chloride IV .Q24H ANDREA 5 MG/HR Methylprednisolone Sodium Succinate 60 mg 06/26/24 18:00 06/27/24 06:26 Methylprednisolone Sod Succi 125 Mg/2 Ml Vial IV 60 mg Q6HR ANDREA Administration Miscellaneous Information 1 each 06/26/24 14:05 Phosphorus Replacement Protoco 1 Each Misc MISCELLANE DAILY PRN Per Protocol Protocol Miscellaneous Information 1 each 06/26/24 14:05 Magnesium Replacement Protocol 1 Each Misc MISCELLANE DAILY PRN Per Protocol Protocol Miscellaneous Information 1 each 06/26/24 14:05 Potassium Replacement Protocol 1 Each Misc MISCELLANE DAILY PRN Per Protocol Naloxone HCl 0.2 mg 06/26/24 14:05 Naloxone 0.4 Mg/Ml 1 Ml Vial IV Q2M PRN Opioid Reversal Pantoprazole Sodium 40 mg 06/27/24 09:00 06/27/24 07:37 Pantoprazole 40 Mg/10 Ml Vial IV 40 mg DAILY ANDREA Administration Intake and Output 06/26/24 06/27/24 06/27/24 22:59 06:59 14:59 Intake Total 600 75 Output Total 190 40 80 Balance -190 560 -5 Intake: Intake, IV Titration 600 75 Amount Sodium Chloride 0.9% 1, 600 75 000 ml @ 75 mls/hr IV . [id number] [facility]A Rx#:[id number] Output: Urine 190 40 80 Other: Voiding Method Indwelling Catheter Indwelling Catheter # Bowel Movements 0 Weight 72.2 kg 06/27/24 02:39 06/27/24 02:39
[2024-06-27] MEDS: FUROSEMIDE 10 MG/ML 4 ML VIAL IV STA (08:52)
[2024-06-27] MEDS: DILTIAZEM 125 MG in SODIUM CHLORIDE 0.9% 100 ML IV SCH (08:53)
[2024-06-27 11:23] LABS: ABG Oxygen Saturation 96.2 % (94-97); ABG PO2 83 mmHg (83-108); Allen Test Performed? Yes
[2024-06-27 11:26] LABS: ABG PH 7.12 (7.35-7.45)
[2024-06-27 11:27] LABS: ABG PCO2 >98 mmHg (35-45)
[2024-06-27] MEDS: SODIUM CHLORIDE 0.9% 1,000 ML IV ONE (11:30)
--- NOTE | 2024-06-27 12:28 | P.PN ---
Subjective Progress Note Date: 06/27/24 88-year-old female patient, presented to us from [facility] in acute hypoxic and hypercapnic respiratory failure. Patient is known to have pulmonary fibrosis followed up through our office by Dr. Drake. The patient has severe restrictive lung disease with an FVC of 61% of predicted and a diffusion capacity of 34% of predicted. She also has hypertension hyperlipidemia and previous history of GI bleed. Recently, she has been experiencing worsening shortness of breath. She ended up being seen at [facility] where she was given antibiotics and discharged. She was noted to be in atrial flutter. She was seen by Dr. Londono from cardiology. She is already on anticoagulation and the patient was being considered for cardioversion. However, the procedure was not done. The patient became more short of breath over the past 24 hours which ended up coming into the hospital. No fever. No chills. No sputum production. Some increased lower extremity edema. Initial blood gas showed a pH of 7.24 with a pCO2 of 86 and pO2 of 41. The patient was placed on a BiPAP at a pressure of 14 over 5 cm of water with an FiO2 of 40%. Subsequent blood gas showed a pH of 7.28 with a pCO2 of 74 and pO2 of 135. Remains in atrial flutter with a variable block and a heart rate between 110 and 120. Blood pressure is soft. She has an acute kidney injury with a creatinine of 1.3 and a pCO2 of 69. Her level of consciousness quite diminished. White cell count of 10.1. Hemoglobin 14.2. The viral screen is negative. proBNP level is 5430. Family is at the bedside. No previous history of DVT or pulmonary embolism. She was already taking anticoagulation with Eliquis. 06/27/2024, the patient is in a very poor condition. Breathing is labored. Remains on a BiPAP. Family has made recommendations against intubation. The son is a direct chill casting operator and based on her age and comorbidities and pulmonary fibrosis, we decided not to intubate. Remains on a BiPAP pressure of 14 over 5 cm of water and FiO2 of 40%. Arterial line was inserted today. The blood gas following that showed a pH of 7.12 with a pCO2 of 98 and pO2 of 83. Very much lethargic and obtunded. Did not respond to diuretics and the patient's urine output has been minimal. Remains in atrial flutter with RVR and the patient remains on amiodarone drip at 0.5 mg/min, Cardizem drip at 5 mg an hour. The patient is also on IV heparin. Echocardiogram was ordered. Family is at the bedside. Afebrile. White cell count is 8.2 with a hemoglobin 13.4 and a platelet count of 235. Sodium levels at 137, potassium is at 5.3, bicarbonate 33, BUN 74 with a creatinine of 1.6. LFTs are normal. Objective - Vital Signs Vital signs: Vital Signs Temp 98.2 F 06/27/24 08:00 Pulse 131 H 06/27/24 08:00 Resp 14 06/27/24 08:00 BP 88/58 06/27/24 08:00 Pulse Ox 93 L 06/27/24 08:00 FiO2 40 06/27/24 08:00 Intake & Output 06/26/24 06/27/24 06/27/24 18:59 06:59 18:59 Intake Total 600 75 Output Total 145 85 80 Balance -145 515 -5 Weight 68.039 kg 72.2 kg Intake: Intake, IV Titration 600 75 Amount Sodium Chloride 0.9% 1, 600 75 000 ml @ 75 mls/hr IV . [id number] [facility] Rx#:[id number] Output: Urine 145 85 80 Other: Voiding Method Indwelling Catheter Indwelling Catheter # Bowel Movements 0 0 - Exam Diminished level of consciousness, tachypneic with respiratory rate between 25 and 30 on a BiPAP at a pressure of 14 over 5 cm of water with an FiO2 of 40%. The generated tidal volumes while being on the BiPAP is poor ranging between 180 to 200 cc. Patient is very much lethargic and obtunded. She only grimaces only to painful stimulation. Not following commands. Head exam is unremarkable. No scleral icterus or corneal arcus noted. Neck is without jugular venous distension, thyromegaly, or carotid bruits. Carotid upstrokes are brisk bilaterally. Lung diminished bilaterally along with) lung base bilaterally. Cardiac exam reveals the PMI to be normally sized and situated. Irregular consistent with atrial flutter with a variable block. First and second heart sounds normal. No murmurs, rubs or gallops. Abdominal exam reveals normal bowel sounds, no masses, no organomegaly and no aortic enlargement. Extremities are nonedematous and both femoral and pedal pulses are normal. Examination of the skin revealed no evidence of significant rashes, suspicious appearing nevi or other concerning lesions. Neurologically, the patient has diminished level of consciousness. Grimaces only to painful stimulation. Very much obtunded. - Labs CBC & Chem 7: 06/27/24 02:39 06/27/24 02:39 Labs: Abnormal Lab Results - Last 24 Hours (Table) 06/26/24 06/26/24 06/26/24 Range/Units 12:57 12:57 12:57 Hct 46.3 H (34.0-46.0) % MCV 103.5 H (80.0-100.0) fL MCHC 30.8 L (31.0-37.0) g/dL Neutrophils # 9.2 H (1.3-7.7) k/uL Lymphocytes # 0.4 L (1.0-4.8) k/uL PT 12.6 H (10.0-12.5) sec INR 1.2 H (<1.2) APTT (22.0-30.0) sec ABG pH (7.35-7.45) ABG pCO2 (35-45) mmHg ABG pO2 (83-108) mmHg ABG HCO3 (21-25) mmol/L ABG Total CO2 (19-24) mmol/L ABG O2 Saturation (94-97) % Potassium (3.5-5.1) mmol/L Chloride 95 L (98-107) mmol/L Carbon Dioxide 38 H (22-30) mmol/L BUN 69 H (7-17) mg/dL Creatinine 1.30 H (0.52-1.04) mg/dL Glucose 144 H (74-99) mg/dL POC Glucose (mg/dL) (70-110) mg/dL Alkaline Phosphatase 130 H (38-126) U/L Total Protein (6.3-8.2) g/dL Albumin (3.5-5.0) g/dL 06/26/24 06/26/24 06/26/24 Range/Units 13:06 15:37 17:02 Hct (34.0-46.0) % MCV (80.0-100.0) fL MCHC (31.0-37.0) g/dL Neutrophils # (1.3-7.7) k/uL Lymphocytes # (1.0-4.8) k/uL PT (10.0-12.5) sec INR (<1.2) APTT (22.0-30.0) sec ABG pH 7.24 L 7.28 L (7.35-7.45) ABG pCO2 86 H* 74 H* (35-45) mmHg ABG pO2 41 L* 135 H (83-108) mmHg ABG HCO3 36 H 35 H (21-25) mmol/L ABG Total CO2 39 H 37 H (19-24) mmol/L ABG O2 Saturation 75.8 L 99.5 H (94-97) % Potassium (3.5-5.1) mmol/L Chloride (98-107) mmol/L Carbon Dioxide (22-30) mmol/L BUN (7-17) mg/dL Creatinine (0.52-1.04) mg/dL Glucose (74-99) mg/dL POC Glucose (mg/dL) 118 H (70-110) mg/dL Alkaline Phosphatase (38-126) U/L Total Protein (6.3-8.2) g/dL Albumin (3.5-5.0) g/dL 06/26/24 06/26/24 06/26/24 Range/Units 18:25 20:28 20:46 Hct (34.0-46.0) % MCV (80.0-100.0) fL MCHC (31.0-37.0) g/dL Neutrophils # (1.3-7.7) k/uL Lymphocytes # (1.0-4.8) k/uL PT (10.0-12.5) sec INR (<1.2) APTT 44.9 H (22.0-30.0) sec ABG pH 7.21 L 7.20 L (7.35-7.45) ABG pCO2 88 H* 87 H* (35-45) mmHg ABG pO2 (83-108) mmHg ABG HCO3 35 H 34 H (21-25) mmol/L ABG Total CO2 38 H 37 H (19-24) mmol/L ABG O2 Saturation 98.5 H 98.3 H (94-97) % Potassium (3.5-5.1) mmol/L Chloride (98-107) mmol/L Carbon Dioxide (22-30) mmol/L BUN (7-17) mg/dL Creatinine (0.52-1.04) mg/dL Glucose (74-99) mg/dL POC Glucose (mg/dL) (70-110) mg/dL Alkaline Phosphatase (38-126) U/L Total Protein (6.3-8.2) g/dL Albumin (3.5-5.0) g/dL 06/26/24 06/26/24 06/27/24 Range/Units 20:46 23:10 02:39 Hct (34.0-46.0) % MCV (80.0-100.0) fL MCHC (31.0-37.0) g/dL Neutrophils # (1.3-7.7) k/uL Lymphocytes # (1.0-4.8) k/uL PT 13.4 H (10.0-12.5) sec INR 1.3 H (<1.2) APTT (22.0-30.0) sec ABG pH (7.35-7.45) ABG pCO2 (35-45) mmHg ABG pO2 (83-108) mmHg ABG HCO3 (21-25) mmol/L ABG Total CO2 (19-24) mmol/L ABG O2 Saturation (94-97) % Potassium 5.3 H (3.5-5.1) mmol/L Chloride 93 L (98-107) mmol/L Carbon Dioxide 35 H (22-30) mmol/L BUN 72 H (7-17) mg/dL Creatinine 1.56 H (0.52-1.04) mg/dL Glucose 180 H (74-99) mg/dL POC Glucose (mg/dL) 167 H (70-110) mg/dL Alkaline Phosphatase 132 H (38-126) U/L Total Protein (6.3-8.2) g/dL Albumin 3.4 L (3.5-5.0) g/dL 06/27/24 06/27/24 06/27/24 Range/Units 02:39 02:39 07:28 Hct (34.0-46.0) % MCV 106.7 H (80.0-100.0) fL MCHC 29.3 L (31.0-37.0) g/dL Neutrophils # (1.3-7.7) k/uL Lymphocytes # 0.3 L (1.0-4.8) k/uL PT (10.0-12.5) sec INR (<1.2) APTT 62.0 H (22.0-30.0) sec ABG pH (7.35-7.45) ABG pCO2 (35-45) mmHg ABG pO2 (83-108) mmHg ABG HCO3 (21-25) mmol/L ABG Total CO2 (19-24) mmol/L ABG O2 Saturation (94-97) % Potassium 5.3 H (3.5-5.1) mmol/L Chloride 96 L (98-107) mmol/L Carbon Dioxide 33 H (22-30) mmol/L BUN 74 H (7-17) mg/dL Creatinine 1.60 H (0.52-1.04) mg/dL Glucose 171 H (74-99) mg/dL POC Glucose (mg/dL) (70-110) mg/dL Alkaline Phosphatase (38-126) U/L Total Protein 6.2 L (6.3-8.2) g/dL Albumin 3.3 L (3.5-5.0) g/dL Assessment and Plan Plan: Acute on top of chronic hypoxic and hypercapnic respiratory failure with sig nificant respiratory acidosis and hypoxemia at time of admission, currently on a BiPAP pressure of 14/5 with FiO2 of 40%. Generated tidal volumes in the order of 200 cc and the patient continues to be tachypneic. Chest x-ray shows diffuse interstitial pulmonary infiltrates consistent with pulmonary fibrosis. No significant change in her chest x-ray findings. Did not respond to diuretics and urine output is minimal and the patient remains oliguric. Presentation could be related to an acute exacerbation of chronic pulmonary fibrosis. This obviously carries a very poor prognosis. Interstitial edema/CHF on top of chronic pulmonary fibrosis is possible. Pneumonia is possible although cons idered to be less likely. Follow-up blood gas from today shows severe respiratory acidosis with interval worsening in the acid-base status. New onset atrial flutter with secondary tachycardia and the patient is a variable block, maintained on anticoagulation with Eliquis on outpatient basis, proBNP level is elevated. Rule out component of CHF. The patient is currently on IV amiodarone and Cardizem ip for rate control. The patient is also on IV heparin. Anticoagulation with Eliquis has been discontinued. Acute on chronic shortness of breath secondary to above Diminished level of consciousness, likely secondary to CO2 narcosis Acute kidney injury, oliguric, no response to diuretics Chronic pulmonary fibrosis with restrictive lung disease Hypertension Hyperlipidemia Previous history of GI bleed Plan Continue BiPAP at the same setting of 16/5 cm of water Follow-up blood gas was noted Chest x-ray was noted and there is no interval change Insert Joyner catheter Start IV Lasix. Give a bolus of 500 cc of normal saline. Continue maintenance normal saline at rate of 75 cc an hour. Monitor renal function IV heparin IV amiodarone per protocol for rate control in regards to atrial flutter IV Cardizem drip for rate control IV Rocephin, empiric antibiotic coverage IV Solu-Medrol Condition is obviously critical. Family did not wanted to intubate. Understand the poor prognosis outcome of this patient. Will try to support with BiPAP. Obtain a follow-up blood test in few hours time. Consider end-of-life care if there is any further decompensation. Evaluation was done more than 30 minutes. Discussed the case with the son and the daughter on 2 separate occasions. Time with Patient: Greater than 30
[2024-06-27] MEDS: SODIUM CHLORIDE 0.9% 500 ML 500 ML IV ONE (12:34)
[2024-06-27 12:47] VITALS: BP 86/63
[2024-06-27 13:43] LABS: ABG Oxygen Saturation 96.6 % (94-97); ABG PO2 87 mmHg (83-108); Allen Test Performed? Yes
[2024-06-27 13:49] LABS: ABG PH 7.09 (7.35-7.45)
[2024-06-27 13:50] LABS: ABG PCO2 >98 mmHg (35-45)
--- NOTE | 2024-06-27 14:51 | P.PCN ---
Date of Procedure: 06/27/24 Preoperative Diagnosis: acute hypoxic respiratory failure Postoperative Diagnosis: acute hypoxic respiratory failure Procedure(s) Performed: arterial line Anesthesia: local Surgeon: Bertha Corona Estimated Blood Loss (ml): 0 Operative Findings: Indication: Hemodynamic monitoring. A time-out was completed verifying correct patient, procedure, site, p ositioning, and implant(s) or special equipment if applicable. Jordy s test was performed to ensure adequate perfusion. The patient s right wrist was prepped and draped in sterile fashion. 1% Lidocaine was used to anesthetize the area. An 18G Arrow arterial line was introduced into the [radial/femoral] artery. The catheter was threaded over the guide wire and the needle was removed with appropriate pulsatile blood return. Blood loss was minimal. The catheter was then sutured in place to the skin and a sterile dressing applied. Perfusion to the extremity distal to the point of catheter insertion was checked and found to be adequate. The patient tolerated the procedure well and there were no complications.
[2024-06-27 14:54] VITALS: PULSE 88; RESP 16
--- NOTE | 2024-06-27 19:04 | P.HPIM ---
History of Present Illness H&P Date: 06/27/24 Chief Complaint: Short of breath 88-year-old patient, follows with Dr. Fernandez. Chronic medical conditions include pulmonary fibrosis, hyperlipidemia, atrial flutter. Patient does follow with Dr. HURLEY gasoline tester for pulmonary fibrosis. History is mainly obtained by the son and daughter at the bedside. Up till over 2 weeks ago patient able to get around the house do some cooking not requiring any oxygen. Then patient had become short of breath. Had presented to [facility]. And then was discharged from there. Received antibiotics for possible pneumonia. Subsequently she had gone to see Dr. Londono her manager fashion because her atrial flutter was uncontrolled. Patient is put on Cardizem and Eliquis. Patient still remains short of breath again was transferred to [facility]. She was transferred on 5 L of oxygen. She had a high CO2 in the ER on blood gases put on a BiPAP. Admitted to the ICU. Overnight patient had received IV amiodarone. And later this morning she was switched over to IV Cardizem for the same. Patient has still not able to give history because of shortness of breath remains on a BiPAP. Patient's was not the hard of hearing other family members also present in the room. Admitting review of system could not be done patient is on the BiPAP Social history: Non-smoker. No alcohol. Lives with her . Physical examination: VITAL SIGNS: 98.2, 120, 40, 87 x 53, 93% on BiPAP GENERAL: BMI 25.7, laying in bed short of breath on BiPAP. EYES: Pupils equal. Conjunctiva deb l. HEENT: External appearance of nose and ears normal, oral cavity grossly normal. NECK: JVD unable to assess; masses not palpable. HEART: Heart sounds irregular; no edema. LUNGS: Respiratory rate increased diminished breath sounds. ABDOMEN: Soft, nontender, liver spleen not palpable, no masses palpable. PSYCH: Lethargic l. MUSCULOSKELETAL:No Clubbing/cyanosis;muscles-grossly intact. OA NEUROLOGICAL: Cranial nerves grossly intact; no facial asymmetry, power and sensation grossly intact. LYMPHATICS: No lymph nodes palpable in the axilla and neck INVESTIGATIONS, reviewed in the clinical context: June 27, 2024: White count 8.2 hemoglobin 13.4 platelets 235 sodium 137 potassium 5.3 BUN 34 creatinine 1.60 EKG tracing personally reviewed by me-atrial flutter rate 112 Chest x-ray film personally reviewed by me-cardiomegaly. Coarse markings./Infiltrates ABG: pH 7.12 pCO2 greater than 98 pO2 83 FiO2 40 Assessment plan: -Acute severe hypoxic hypercapnic respiratory failure combination of pulmonary fibrosis, secondary infection that could be viral. -Acute hypoxic metabolic encephalopathy -Severe respiratory acidosis -Persistent atrial flutter, rate uncontrolled Overnight patient had received IV amiodarone. Started today on IV Cardizem. Cardiology following. [place] -DNR per family Patient is on a BiPAP significant acidotic blood gases. Several family members at the bedside. Prognosis guarded Patient being followed by pulmonary. Cardiology Advance care planning [June 27, 2024]: This was done with patient's son and daughter at the bedside. Patient's is also hard of hearing with hearing aids sitting. Patient's condition was reviewed. The quite understanding of patient's overall guarded prognosis. Did not want to prolong and do not want intubation. They are waiting for 1 grandson to come in. Decision made to proceed with comfort measures. Agreeable to hospice including for counseling. Questions answered Time spent for this about 25 minutes Past Medical History Past Medical History: Atrial Flutter, Hyperlipidemia Additional Past Medical History / Comment(s): pulmonary fibrosis History of Any Multi-Drug Resistant Organisms: None Reported Past Surgical History: Heart Catheterization Additional Past Surgical History / Comment(s): approx 10 years ago. Past Anesthesia/Blood Transfusion Reactions: No Reported Reaction Past Psychological History: No Psychological Hx Reported Smoking Status: Never smoker Past Alcohol Use History: None Reported Past Drug Use History: None Reported - Past Family History Father Family Medical History: Myocardial Infarction (MA) Medications and Allergies Home Medications Medication Instructions Recorded Confirmed Type predniSONE 5 mg PO MOWEFR 04/07/18 06/26/24 History Apixaban [Eliquis] 5 mg PO BID-W/MEALS 06/26/24 06/26/24 History Calcium Carbonate [Calcium] 600 mg PO DAILY 06/26/24 06/26/24 History Multivit-Min/Iron/Folic/Lutein 1 tab PO DAILY 06/26/24 06/26/24 History [Centrum Silver Women Tablet] Omeprazole Magnesium [PriLOSEC OTC] 20 mg PO DAILY 06/26/24 06/26/24 History Triamterene/Hydrochlorothiazid 1 tab PO DAILY 06/26/24 06/26/24 History [Triamterene-Hctz 37.5-25 mg Tb] dilTIAZem HCL 30 mg PO TID 06/26/24 06/26/24 History Allergies Allergy/AdvReac Type Severity Reaction Status Date / Time No Known Allergies Allergy Verified 06/26/24 12:34 Physical Exam Vitals: Vital Signs Temp Pulse Resp BP Pulse Ox FiO2 06/27/24 12:02 40 06/27/24 12:00 94 33 H 93 L 06/27/24 11:43 92 06/27/24 11:33 90 40 06/27/24 11:00 116 H 43 H 93 L 06/27/24 10:00 98 27 H 86/63 93 L 06/27/24 09:00 130 H 58 H 93/65 95 06/27/24 08:30 129 H 19 88/57 94 L 06/27/24 08:00 98.2 F 131 H 14 88/58 93 L 40 06/27/24 07:49 133 H 06/27/24 07:36 130 H 06/27/24 07:35 40 06/27/24 07:30 131 H 23 95/61 96 40 06/27/24 07:00 131 H 24 94/64 96 06/27/24 06:30 130 H 21 92/61 96 06/27/24 06:00 130 H 23 91/58 96 06/27/24 05:30 89 10 L 92/62 95 06/27/24 05:00 93 12 92/57 96 06/27/24 04:30 108 H 22 94/56 96 06/27/24 04:11 40 06/27/24 04:00 97.9 F 108 H 53 H 86/50 95 40 06/27/24 03:30 95 19 100/66 95 06/27/24 03:00 94 11 L 93/56 97 06/27/24 02:30 104 H 27 H 96/61 96 06/27/24 02:00 72 27 H 94/63 95 06/27/24 01:30 68 27 H 92/64 96 06/27/24 01:00 108 H 30 H 95/65 95 06/27/24 00:30 117 H 31 H 96/54 97 06/27/24 00:23 40 06/27/24 00:06 100 26 H 96/54 97 06/27/24 00:00 97.7 F 85 34 H 95/60 97 40 06/26/24 23:30 101 H 58 H 105/65 98 06/26/24 23:00 98 28 H 96/63 98 06/26/24 22:30 92 23 94/70 98 06/26/24 22:00 80 24 99/61 98 06/26/24 21:30 98 29 H 97/62 98 06/26/24 21:00 75 24 98/74 99 06/26/24 20:30 98 28 H 100/66 98 06/26/24 20:07 88 06/26/24 20:00 97.6 F 112 H 26 H 92/68 99 40 06/26/24 19:57 90 40 06/26/24 19:30 67 25 H 89/51 98 06/26/24 19:00 90 30 H 95/58 98 40 06/26/24 18:30 90 27 H 90/48 99 40 06/26/24 18:00 90 13 90/48 97 40 06/26/24 17:30 76 21 105/72 98 40 06/26/24 17:02 97.4 F L 88 27 H 98/71 98 40 06/26/24 16:44 78 06/26/24 16:34 68 06/26/24 16:18 40 06/26/24 16:16 85 22 89/56 99 06/26/24 16:00 40 06/26/24 15:32 98 24 94/52 99 06/26/24 15:25 124 H 24 112/83 98 06/26/24 15:23 40 06/26/24 15:06 98 24 92/67 98 06/26/24 14:31 107 H 26 H 90/54 97 06/26/24 14:01 40 06/26/24 14:00 91 24 94/43 96 Intake and Output 06/26/24 06/27/24 06/27/24 22:59 06:59 14:59 Intake Total 600 2203.892 Output Total 190 40 101 Balance -623 980 4725.892 Intake: IV 1950 Sodium Chloride 0.9% 1, 450 000 ml @ 75 mls/hr IV . [id number] ANDREA Rx#:[id number] Sodium Chloride 0.9% 1, 1500 000 ml @ 999 mls/hr IV . Q1H1M ONE Rx#:[id number] Intake, IV Titration 600 253.892 Amount Amiodarone 450 mg In 178.892 Dextrose 5% in Water 250 ml @ 0.5 MG/MIN 16.667 mls/hr IV .Q15H [facility] Rx#: [id number] Sodium Chloride 0.9% 1, 600 75 000 ml @ 75 mls/hr IV . [id number] [facility] Rx#:[id number] Output: Urine 190 40 101 Other: Voiding Method Indwelling Catheter Indwelling Catheter Indwelling Catheter # Bowel Movements 0 Weight 72.2 kg ABP, PAP, CO, CI - Last 8 Hours Arterial Blood Pressure 84/48 Arterial Blood Pressure 87/53 Arterial Blood Pressure 90/53 Results CBC & Chem 7: 06/27/24 02:39 06/27/24 02:39 Labs: Abnormal Lab Results - Last 24 Hours (Table) 06/26/24 06/26/24 06/26/24 Range/Units 12:57 15:37 17:02 MCV (80.0-100.0) fL MCHC (31.0-37.0) g/dL Lymphocytes # (1.0-4.8) k/uL PT (10.0-12.5) sec INR (<1.2) APTT (22.0-30.0) sec ABG pH 7.28 L (7.35-7.45) ABG pCO2 74 H* (35-45) mmHg ABG pO2 135 H (83-108) mmHg ABG HCO3 35 H (21-25) mmol/L ABG Total CO2 37 H (19-24) mmol/L ABG O2 Saturation 99.5 H (94-97) % Potassium (3.5-5.1) mmol/L Chloride (98-107) mmol/L Carbon Dioxide (22-30) mmol/L BUN (7-17) mg/dL Creatinine (0.52-1.04) mg/dL Glucose (74-99) mg/dL POC Glucose (mg/dL) 118 H (70-110) mg/dL Alkaline Phosphatase (38-126) U/L Total Protein (6.3-8.2) g/dL Albumin (3.5-5.0) g/dL Free T3 pg/mL 1.40 L (2.30-4.20) pg/mL 06/26/24 06/26/24 06/26/24 Range/Units 18:25 20:28 20:46 MCV (80.0-100.0) fL MCHC (31.0-37.0) g/dL Lymphocytes # (1.0-4.8) k/uL PT (10.0-12.5) sec INR (<1.2) APTT 44.9 H (22.0-30.0) sec ABG pH 7.21 L 7.20 L (7.35-7.45) ABG pCO2 88 H* 87 H* (35-45) mmHg ABG pO2 (83-108) mmHg ABG HCO3 35 H 34 H (21-25) mmol/L ABG Total CO2 38 H 37 H (19-24) mmol/L ABG O2 Saturation 98.5 H 98.3 H (94-97) % Potassium (3.5-5.1) mmol/L Chloride (98-107) mmol/L Carbon Dioxide (22-30) mmol/L BUN (7-17) mg/dL Creatinine (0.52-1.04) mg/dL Glucose (74-99) mg/dL POC Glucose (mg/dL) (70-110) mg/dL Alkaline Phosphatase (38-126) U/L Total Protein (6.3-8.2) g/dL Albumin (3.5-5.0) g/dL Free T3 pg/mL (2.30-4.20) pg/mL 06/26/24 06/26/24 06/27/24 Range/Units 20:46 23:10 02:39 MCV (80.0-100.0) fL MCHC (31.0-37.0) g/dL Lymphocytes # (1.0-4.8) k/uL PT 13.4 H (10.0-12.5) sec INR 1.3 H (<1.2) APTT (22.0-30.0) sec ABG pH (7.35-7.45) ABG pCO2 (35-45) mmHg ABG pO2 (83-108) mmHg ABG HCO3 (21-25) mmol/L ABG Total CO2 (19-24) mmol/L ABG O2 Saturation (94-97) % Potassium 5.3 H (3.5-5.1) mmol/L Chloride 93 L (98-107) mmol/L Carbon Dioxide 35 H (22-30) mmol/L BUN 72 H (7-17) mg/dL Creatinine 1.56 H (0.52-1.04) mg/dL Glucose 180 H (74-99) mg/dL POC Glucose (mg/dL) 167 H (70-110) mg/dL Alkaline Phosphatase 132 H (38-126) U/L Total Protein (6.3-8.2) g/dL Albumin 3.4 L (3.5-5.0) g/dL Free T3 pg/mL (2.30-4.20) pg/mL 06/27/24 06/27/24 06/27/24 Range/Units 02:39 02:39 07:28 MCV 106.7 H (80.0-100.0) fL MCHC 29.3 L (31.0-37.0) g/dL Lymphocytes # 0.3 L (1.0-4.8) k/uL PT (10.0-12.5) sec INR (<1.2) APTT 62.0 H (22.0-30.0) sec ABG pH (7.35-7.45) ABG pCO2 (35-45) mmHg ABG pO2 (83-108) mmHg ABG HCO3 (21-25) mmol/L ABG Total CO2 (19-24) mmol/L ABG O2 Saturation (94-97) % Potassium 5.3 H (3.5-5.1) mmol/L Chloride 96 L (98-107) mmol/L Carbon Dioxide 33 H (22-30) mmol/L BUN 74 H (7-17) mg/dL Creatinine 1.60 H (0.52-1.04) mg/dL Glucose 171 H (74-99) mg/dL POC Glucose (mg/dL) (70-110) mg/dL Alkaline Phosphatase (38-126) U/L Total Protein 6.2 L (6.3-8.2) g/dL Albumin 3.3 L (3.5-5.0) g/dL Free T3 pg/mL (2.30-4.20) pg/mL 06/27/24 Range/Units 11:17 MCV (80.0-100.0) fL MCHC (31.0-37.0) g/dL Lymphocytes # (1.0-4.8) k/uL PT (10.0-12.5) sec INR (<1.2) APTT (22.0-30.0) sec ABG pH 7.12 L* (7.35-7.45) ABG pCO2 >98 H* (35-45) mmHg ABG pO2 (83-108) mmHg ABG HCO3 (21-25) mmol/L ABG Total CO2 (19-24) mmol/L ABG O2 Saturation (94-97) % Potassium (3.5-5.1) mmol/L Chloride (98-107) mmol/L Carbon Dioxide (22-30) mmol/L BUN (7-17) mg/dL Creatinine (0.52-1.04) mg/dL Glucose (74-99) mg/dL POC Glucose (mg/dL) (70-110) mg/dL Alkaline Phosphatase (38-126) U/L Total Protein (6.3-8.2) g/dL Albumin (3.5-5.0) g/dL Free T3 pg/mL (2.30-4.20) pg/mL Thrombosis Risk Factor Assmnt - Choose All That Apply Any of the Below Risk Factors Present?: Yes Each Factor Represents 1 point: Abnormal pulmonary function (COPD), Medical pt on bed rest, Serious lung disease incl. pneumonia (< 1month), Swollen legs (current) Other Risk Factors: Yes Each Risk Factor Represents 2 Points: Patient confined to bed Each Risk Factor Represents 3 Points: Age 75 years or older Other congenital or acquired thrombophilia - If yes, enter type in comment: No Thrombosis Risk Factor Assessment Total Risk Factor Score: 9 Thrombosis Risk Factor Assessment Level: High Risk
--- NOTE | 2024-06-27 19:06 | P.DS ---
Providers Date of admission: 06/26/24 14:05 Expected date of discharge: 06/27/24 Attending physician: David Vergara Consults: 06/26/24 14:05 Consult Physician Stat Consulting Provider: Bertha Corona Consult Reason/Comments: resp failure Do you want consulting provider notified?: Already Contacted 06/26/24 15:28 Consult Physician Urgent Consulting Provider: Tashi Londono Consult Reason/Comments: a flutter Do you want consulting provider notified?: Yes Primary care physician: [facility] Course: Chief Complaint: Short of breath 88-year-old patient, follows with Dr. Fernandez. Chronic medical conditions include pulmonary fibrosis, hyperlipidemia, atrial flutter. 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 History is mainly obtained by the son and daughter at the bedside. Up till over 2 weeks ago patient able to get around the house do some cooking not requiring any oxygen. Then patient had become short of breath. Had presented to [facility]. And then was discharged from there. Received antibiotics for possible pneumonia. Subsequently she had gone to see Dr. Londono her cardi ologist because her atrial flutter was uncontrolled. Patient is put on Cardizem and Eliquis. Patient still remains short of breath again was transferred to [facility]. She was transferred on 5 L of oxygen. She had a high CO2 in the ER on blood gases put on a BiPAP. Admitted to the ICU. Overnight patient had received IV amiodarone. And later this morning she was switched over to IV Cardizem for the same. Patient has still not able to give history because of shortness of breath remains on a BiPAP. Patient's was not the hard of hearing other family members also present in the room. After discussion with patient's son daughter and the . Patient is being made comfort care. Hospice consulted. For GIP. Social history: Non-smoker. No alcohol. Lives with her . Physical examination: VITAL SIGNS: 98.2, 120, 40, 87 x 53, 93% on BiPAP GENERAL: BMI 25.7, laying in bed short of breath on BiPAP. EYES: Pupils equal. Conjunctiva deb l. HEENT: External appearance of nose and ears normal, oral cavity grossly normal. NECK: JVD unable to assess; masses not palpable. HEART: Heart sounds irregular; no edema. LUNGS: Respiratory rate increased diminished breath sounds. ABDOMEN: Soft, nontender, liver spleen not palpable, no masses palpable. PSYCH: Lethargic l. MUSCULOSKELETAL:No Clubbing/cyanosis;muscles-grossly intact. OA NEUROLOGICAL: Cranial nerves grossly intact; no facial asymmetry, power and sensation grossly intact. LYMPHATICS: No lymph nodes palpable in the axilla and neck INVESTIGATIONS, reviewed in the clinical context: June 27, 2024: White count 8.2 hemoglobin 13.4 platelets 235 sodium 137 potassium 5.3 BUN 34 creatinine 1.60 EKG tracing personally reviewed by me-atrial flutter rate 112 Chest x-ray film personally reviewed by me-cardiomegaly. Coarse markings./Infiltrates ABG: pH 7.12 pCO2 greater than 98 pO2 83 FiO2 40 Assessment plan: -Acute severe hypoxic hypercapnic respiratory failure combination of pulmonary fibrosis, secondary infection that could be viral. -Acute hypoxic metabolic encephalopathy -Severe respiratory acidosis -Persistent atrial flutter, rate uncontrolled Overnight patient had received IV amiodarone. Started today on IV Cardizem. Cardiology following. Eliquis -DNR per family Patient is on a BiPAP significant acidotic blood gases. Several family members at the bedside. Prognosis guarded Patient being followed by pulmonary. Cardiology Advance care planning [June 27, 2024]: This was done with patient's son and daughter at the bedside. Patient's is also hard of hearing with hearing aids sitting. Patient's condition was reviewed. The quite understanding of patient's overall guarded prognosis. Did not want to prolong and do not want intubation. They are waiting for 1 grandson to come in. Decision made to proceed with comfort measures. Agreeable to hospice including for counseling. Questions answered Time spent for this about 25 minutes Disposition: Hospice/GIP Past Medical History Past Medical History: Atrial Flutter, Hyperlipidemia Additional Past Medical History / Comment(s): pulmonary fibrosis History of Any Multi-Drug Resistant Organisms: None Reported Past Surgical History: Heart Catheterization Additional Past Surgical History / Comment(s): approx 10 years ago. Past Anesthesia/Blood Transfusion Reactions: No Reported Reaction Past Psychological History: No Psychological Hx Reported Smoking Status: Never smoker Past Alcohol Use History: None Reported Past Drug Use History: None Reported Plan - Discharge Summary Discharge Rx Participant: Yes New Discharge Prescriptions: No Action predniSONE 5 mg PO MOWEFR Calcium Carbonate [Calcium] 600 mg PO DAILY Multivit-Min/Iron/Folic/Lutein [Centrum Silver Women Tablet] 1 tab PO DAILY dilTIAZem HCL 30 mg PO TID Triamterene/Hydrochlorothiazid [Triamterene-Hctz 37.5-25 mg Tb] 1 tab PO DAILY Apixaban [Eliquis] 5 mg PO BID-W/MEALS Omeprazole Magnesium [PriLOSEC OTC] 20 mg PO DAILY Discharge Medication List predniSONE 5 mg PO MOWEFR 04/07/18 [History] Apixaban [Eliquis] 5 mg PO BID-W/MEALS 06/26/24 [History] Calcium Carbonate [Calcium] 600 mg PO DAILY 06/26/24 [History] Multivit-Min/Iron/Folic/Lutein [Centrum Silver Women Tablet] 1 tab PO DAILY 06/26/24 [History] Omeprazole Magnesium [PriLOSEC OTC] 20 mg PO DAILY 06/26/24 [History] Triamterene/Hydrochlorothiazid [Triamterene-Hctz 37.5-25 mg Tb] 1 tab PO DAILY 06/26/24 [History] dilTIAZem HCL 30 mg PO TID 06/26/24 [History] Follow up Appointment(s)/Referral(s): Ollie Fernandez MD [Primary Care Provider] - 1-2 days Discharge Disposition: DISCH TO [facility]
== END 2024-06-27 16:37 | disposition hospice, inpatient (51) | DRG 196 ==
LOC: EC 12:13 → 2SICU 14:05
PROVIDERS: ADMIT Hospitalist; ATTEND Hospitalist
PROC: 5A09357 Assistance with Respiratory Ventilation, Less than 24 Consecutive Hours, Continuous Positive Airway Pressure (ICD-10-PCS; principal; 2024-06-26)
PROC: 06HY33Z Insertion of Infusion Device into Lower Vein, Percutaneous Approach (ICD-10-PCS; 2024-06-26)
PROC: 03HY32Z Insertion of Monitoring Device into Upper Artery, Percutaneous Approach (ICD-10-PCS; 2024-06-27)
PROC: 4A133B1 Monitoring of Arterial Pressure, Peripheral, Percutaneous Approach (ICD-10-PCS; 2024-06-27)
PROC: 4A133J1 Monitoring of Arterial Pulse, Peripheral, Percutaneous Approach (ICD-10-PCS; 2024-06-27)
DX: J84.10 Pulmonary fibrosis, unspecified (principal); G93.41 Metabolic encephalopathy; J96.02 Acute respiratory failure with hypercapnia; J96.01 Acute respiratory failure with hypoxia; J18.9 Pneumonia, unspecified organism; E87.29 Other acidosis; I48.92 Unspecified atrial flutter; Z51.5 Encounter for palliative care; Z66 Do not resuscitate; N17.9 Acute kidney failure, unspecified; I10 Essential (primary) hypertension; I48.91 Unspecified atrial fibrillation; H91.93 Unspecified hearing loss, bilateral; E78.5 Hyperlipidemia, unspecified; J98.4 Other disorders of lung; Z87.19 Personal history of other diseases of the digestive system; Z97.4 Presence of external hearing-aid; Z79.01 Long term (current) use of anticoagulants; Z79.52 Long term (current) use of systemic steroids
CPT/HCPCS: 36415; 36600; 51702; 71045; 80053; 82805; 83605; 83735; 83880; 84145; 84439; 84443; 84481; 84484; 85025; 85610; 85730; 87040; 87636; 93005; 94640; 94660; 96361; 96365; 96367; 96375; 99291

== ENCOUNTER 2024-06-27 16:06 | Inpatient (IN) | payer MEDICAID ==
[2024-06-27] MEDS ORDERED: GLYCOPYRROLATE 0.2 MG/ML 2 ML VIAL IVP PRN (16:14)
[2024-06-27] MEDS ORDERED: DRY MOUTH SPRAY 59 SPRAY/59 ML SPRAY MUCOUS MEM PRN (16:14)
[2024-06-27] MEDS ORDERED: HALOPERIDOL LACTATE 5 MG/ML 1 ML VIAL IM PRN (16:14)
[2024-06-27] MEDS ORDERED: ONDANSETRON 4 MG/2 ML VIAL IVP PRN (16:14)
[2024-06-27] MEDS ORDERED: ACETAMINOPHEN SUPPOSITORY 650 MG SUPP RECTAL PRN (16:14)
[2024-06-27] MEDS: MORPHINE SULFATE 4 MG/ML SYRINGE IV PRN (16:52)
[2024-06-27] MEDS: ATROPINE OPHTH SOLN 1% 5ML BTL SUBLINGUAL PRN (16:53)
[2024-06-27] MEDS: MORPHINE SULFATE (100 MG/2 ML) 100 MG in SODIUM CHLORIDE 0.9% 100 ML IV SCH (16:53)
[2024-06-27] MEDS: SCOPOLAMINE 1 MG/72 HR PATCH TRANSDERM SCH (16:54)
[2024-06-27] MEDS: LORazepam 2 MG/ML INJ IV PRN (17:53)
--- NOTE | 2024-06-27 19:15 | P.DS ---
Providers Date of admission: 06/27/24 16:40 Expected date of discharge: 06/27/24 () Attending physician: David Vergara Primary care physician: Ollie [facility] Course: Patient admitted under GIP/hospice for comfort measures. Family was present. Patient Cause of : Pulmonary fibrosis Plan - Discharge Summary New Discharge Prescriptions: No Action predniSONE 5 mg PO MOWEFR Calcium Carbonate [Calcium] 600 mg PO DAILY Multivit-Min/Iron/Folic/Lutein [Centrum Silver Women Tablet] 1 tab PO DAILY dilTIAZem HCL 30 mg PO TID Triamterene/Hydrochlorothiazid [Triamterene-Hctz 37.5-25 mg Tb] 1 tab PO DAILY Apixaban [Eliquis] 5 mg PO BID-W/MEALS Omeprazole Magnesium [PriLOSEC OTC] 20 mg PO DAILY Discharge Medication List predniSONE 5 mg PO MOWEFR 04/07/18 [History] Apixaban [Eliquis] 5 mg PO BID-W/MEALS 06/26/24 [History] Calcium Carbonate [Calcium] 600 mg PO DAILY 06/26/24 [History] Multivit-Min/Iron/Folic/Lutein [Centrum Silver Women Tablet] 1 tab PO DAILY 06/26/24 [History] Omeprazole Magnesium [PriLOSEC OTC] 20 mg PO DAILY 06/26/24 [History] Triamterene/Hydrochlorothiazid [Triamterene-Hctz 37.5-25 mg Tb] 1 tab PO DAILY 06/26/24 [History] dilTIAZem HCL 30 mg PO TID 06/26/24 [History]
== END 2024-06-27 23:00 | disposition expired | DRG 951 ==
LOC: 2SICU 16:40
PROVIDERS: ADMIT Hospitalist; ATTEND Hospitalist
DX: Z51.5 Encounter for palliative care (principal); J84.10 Pulmonary fibrosis, unspecified